=== PATIENT | male | born 1950 | race Caucasian/White ===

== ENCOUNTER 2021-03-11 08:46 | Observation (INO) | payer OTHER, BC ==
[2021-03-11 09:07] VITALS: BMI 25.3
[2021-03-11] MEDS ORDERED: ASPIRIN 81 MG CHEWABLE TABLETS PO ONE ×2 (09:56→10:05)
[2021-03-11 09:58] LABS: BASO % 1.2 % (0-2.0); EOS % 1.2 % (0-4.5); HEMATOCRIT 43.8 % (35.4-49); HEMOGLOBIN 14.6 GM/dL (11.7-16.9); LYMPH % 11.5 % (8-40); MCH 26.7 pg (25.7-33.7); MCHC 33.3 g/dl (32.0-35.9); MEAN CELL VOLUME 79.9 fl (80-96); MEAN PLT VOLUME 7.1 fl (7.5-11.1); MONO % 4.6 % (3.8-10.2); NEUT % 81.5 % (42.8-82.8); PLATELET COUNT 227 K/MM3 (134-434); RBC 5.48 M/mm3 (4.00-5.60); RDW 15.6 % (11.9-15.9); WHITE BLOOD COUNT 6.9 K/mm3 (4.0-10.0)
[2021-03-11] MEDS ORDERED: ASPIRIN 81 MG CHEWABLE TABLETS ONE (10:04)
[2021-03-11 10:06] LABS: INR 0.97 (0.83-1.09); PROTHROMBIN TIME (PATIENT) 11.7 SEC (9.7-13.0)
[2021-03-11 10:08] LABS: ACTIVATED PTT 24.2 SECONDS (25.2-36.5)
[2021-03-11 10:20] LABS: CHLORIDE 105 mmol/L (98-107); SODIUM 139 mmol/L (136-145)
[2021-03-11 10:22] LABS: CALCIUM 9.5 mg/dL (8.5-10.1)
[2021-03-11 10:23] LABS: ANION GAP 3 MMOL/L (8-16); BLOOD UREA NITROGEN 14.5 mg/dL (7-18); CO2 31 mmol/L (21-32); GLUCOSE,RANDOM 298 mg/dL (74-106)
[2021-03-11 10:26] LABS: CREATININE 0.8 mg/dL (0.55-1.3); SGOT/AST 17 U/L (15-37); SGPT/ALT 25 U/L (13-61)
[2021-03-11 10:27] LABS: BILIRUBIN,TOTAL 0.7 mg/dL (0.2-1)
[2021-03-11 10:29] LABS: ALK PHOS 69 U/L (45-117); TOT PROT 6.5 g/dl (6.4-8.2)
[2021-03-11] MEDS: PANTOPRAZOLE 40 MG TABLET PO SCH (21:10)
[2021-03-11] MEDS: ENALAPRIL MALEATE 5 MG TABLET PO SCH (21:10)
[2021-03-11] MEDS: ENOXAPARIN NA (PORCINE) 40 MG/0.4 ML DISP.SYRIN SQ SCH (21:10)
[2021-03-11] MEDS ORDERED: ROSUVASTATIN CA 10 MG TABLET (FP) PO SCH (22:00)
[2021-03-12] MEDS ORDERED: PT OWN MED DRAWER 7, Y5N ONE ×6 (08:26→10:40)
[2021-03-12] MEDS ORDERED: REGADENOSON 0.4 MG/5 ML PRE-FILLED SYRINGE IVPUSH ONE ×2 (09:28→09:30)
[2021-03-12] MEDS ORDERED: amLODIPine BESYLATE 5 MG TABLET (FP) PO SCH (10:00)
[2021-03-12] MEDS ORDERED: ASPIRIN 81 MG CHEWABLE TABLETS PO SCH (10:00)
[2021-03-12] MEDS: ENALAPRIL MALEATE 5 MG TABLET PO SCH (11:51)
[2021-03-12] MEDS: PANTOPRAZOLE 40 MG TABLET PO SCH (11:51)
[2021-03-12] MEDS: ENOXAPARIN NA (PORCINE) 40 MG/0.4 ML DISP.SYRIN SQ SCH (11:53)
[2021-03-12 13:53] VITALS: BP 131/56; PULSE 64; TEMP 97.8
== END 2021-03-12 18:28 | disposition home or self-care (01) ==
LOC: JER 08:46 → UNDOADMOB 10:53 → JERBED 10:53 → INTOOBSV 10:53 → JERBED 13:46 → J4S 03-12 01:23
PROVIDERS: ADMIT Internal Medicine; ATTEND Internal Medicine
PROC: 3E023GC Introduction of Other Therapeutic Substance into Muscle, Percutaneous Approach (ICD-10-PCS; principal; 2021-03-11)
PROC: 3E033GC Introduction of Other Therapeutic Substance into Peripheral Vein, Percutaneous Approach (ICD-10-PCS; 2021-03-11)
DX: I25.10 Atherosclerotic heart disease of native coronary artery without angina pectoris (principal); I11.9 Hypertensive heart disease without heart failure; I73.9 Peripheral vascular disease, unspecified; E78.5 Hyperlipidemia, unspecified; R73.03 Prediabetes; Z72.0 Tobacco use; R07.9 Chest pain, unspecified; Z95.1 Presence of aortocoronary bypass graft; K59.89 Other specified functional intestinal disorders; Z88.0 Allergy status to penicillin
CPT/HCPCS: 36415; 71045-TC-FY; 78452-TC; 80053; 80061; 82962; 83036; 83721; 84443; 84484; 85025; 85610; 85730; 93005; 93010; 93017; 93306-TC; 96372; 96374; 99285-25; A9502; C9803; G0378; J2785; U0003; U0005